=== PATIENT | female | born 1945 | race Caucasian/White ===

== ENCOUNTER 2016-08-09 12:48 | Emergency (ER) | payer MEDICARE, OTHER ==
[2016-08-09 12:56] VITALS: BP 102/60
--- NOTE | 2016-08-09 13:30 | UC ---
Hand/Wrist HPI - HPI Summary HPI Summary: 71 y/o female with PMHX kidney transplant in 1975, osteporosis, adrenal insufficiency presents to the urgent care c/o of left wrist burning pain for the past 3 months after doing some winter shoveling. However it has become worse since last week when she was lifting some bags of mulch. Patient is 6/10 radiating to the thumb. Pt denies tingling or numbness over the hand. Patient denies SOB, chest pain, N/V. - History Of Current Complaint Chief Complaint: UCUpperExtremity Stated Complaint: LEFT WRIST Time Seen by Provider: 08/09/16 12:57 Hx Obtained From: Patient ?: No Onset/Duration: Gradual Onset, Lasting Weeks, Still Present, Worse Since - 1 week ago Severity Initially: Moderate Severity Currently: Moderate Pain Intensity: 8 Pain Scale Used: 0-10 Numeric Character Of Pain: Burning Aggravating Factor(s): Movement, Lifting, Flexion, Extension Associated Signs And Symptoms: Positive: Negative - Allergies/Home Medications Allergies/Adverse Reactions: Allergies Allergy/AdvReac Type Severity Reaction Status Date / Time Adhesive Tape Allergy Hives Verified 08/09/16 12:57 Sulfamethoxazole AdvReac Nausea And Verified 08/09/16 12:57 w/Trimethoprim Vomiting [From Bactrim] Home Medications: Home Medications Ascorbic Acid TAB* [Vitamin C TAB*] 1 tbsp PO DAILY 08/09/16 [History Confirmed 08/09/16] Atorvastatin* [Lipitor 10 MG*] 10 mg PO DAILY 08/09/16 [History Confirmed ] Cholecalciferol [Vitamin D] 10,000 unit PO DAILY 08/09/16 [History Confirmed ] Fludrocortisone Acetate TAB* [Florinef TAB*] 1 tab PO DAILY 08/09/16 [History Confirmed 08/09/16] Probiotic Product [Probiotic Daily] 1 cap PO DAILY 08/09/16 [History Confirmed 08/09/16] azaTHIOprine TAB(*) [Imuran TAB(*)] 50 mg PO DAILY 08/09/16 [History Confirmed 08/09/16] predniSONE TAB* [Deltasone TAB*] 5 mg PO DAILY 08/09/16 [History Confirmed 08/09] PMH/Surg Hx/FS Hx/Imm Hx - Additional Past Medical History Additional PMH: osteporosis, adrenal insuficiency - Surgical History Surgery Procedure, Year, and Place: kidney transplant 1975 - Family History Known Family History: Positive: Cardiac Disease Negative: Renal Disease - Social History Occupation: Retired Alcohol Use: None Substance Use Type: None Smoking Status (MU): Never Smoked Tobacco Review of Systems Constitutional: Negative Skin: Negative Eyes: Negative ENT: Negative Respiratory: Negative Cardiovascular: Negative Gastrointestinal: Negative Genitourinary: Negative Motor: Negative Neurovascular: Negative Musculoskeletal: Other: - left wrist pain Neurological: Negative Psychological: Negative All Other Systems Reviewed And Are Negative: Yes Physical Exam Triage Information Reviewed: Yes Appearance: Well-Appearing, No Pain Distress, Well-Nourished, Thin Vital Signs: Initial Vital Signs Temp 98.2 F 08/09/16 12:49 Pulse 68 08/09/16 12:49 Resp 16 08/09/16 12:49 BP 102/60 08/09/16 12:49 Pulse Ox 98 08/09/16 12:49 Vital Signs Reviewed: Yes Eye Exam: Normal Eyes: Positive: Conjunctiva Clear ENT Exam: Normal ENT: Positive: Normal ENT inspection, Hearing grossly normal, Pharynx normal, TMs normal Dental Exam: Normal Neck exam: Normal Neck: Positive: Supple, Nontender Respiratory Exam: Normal Respiratory: Positive: Chest non-tender, Lungs clear, Normal breath sounds Cardiovascular Exam: Normal Cardiovascular: Positive: RRR, No Murmur, Pulses Normal Abdominal Exam: Normal Abdomen Description: Positive: Nontender, No Organomegaly, Soft. Negative: CVA Tenderness (R), CVA Tenderness (L) Bowel Sounds: Positive: Present Musculoskeletal Exam: Normal, Other - LF wrist tenderness on deep palapation over the ventral side. No swelling or erythema noted. No rashes. mild thenar eminesce atrophy. Positive capillary refill and pulses, sensation. Decrease ROM specially in flexion and extension. Weak abduction over the thumb. Positive phalen test Musculoskeletal: Positive: Strength Intact Neurological Exam: Normal Neurological: Positive: Alert Psychological Exam: Normal Skin Exam: Normal Skin: Negative: rashes Hand/Wrist Course/Dx - Differential Dx/Diagnosis Differential Diagnosis/HQI/PQRI: Carpal Tunnel Syndrome, Dislocation, Fracture, Tenosynovitis Provider Diagnoses: carpal tunnel syndrome, osteoarthritis, osteopenia - Physician Notifications Discussed Patient Care With: Dr Zarrini he advised to Rx tylenol prn to alleviate symptoms, advised PT to continue using the Thumb Spica immobilizer at all times and follow up with orthopedic for further evaluation and treatment. Discharge - Discharge Plan Condition: Stable Disposition: HOME Prescriptions: Acetaminophen TAB* [Tylenol TAB*] 325 mg PO Q6H PRN #30 tab PRN Reason: Pain Patient Education Materials: De Quervain Disease (ED), Paresthesia (ED) Referrals: Aldair Del Toro MD [Medical Doctor] - 1 Week Celeste Mar DO [Primary Care Provider] - Deric Mckeon MD [Medical Doctor] - 1 Week Additional Instructions: Please take medication as directed. Use the thumb Spica immobilizer at all times. Avoid heavy lifting. Follow up with orthopedic for further evaluation.
--- NOTE | 2016-08-09 13:45 | RAD ---
HISTORY: Left wrist pain COMPARISONS: None VIEWS: 3, Frontal, lateral, and oblique views of the left wrist FINDINGS: BONE DENSITY: There is diffuse osteopenia. BONES: There is no displaced fracture. JOINTS: There is moderate osteoarthritis of the radiocarpal and ulnar-carpal articulations. There is chondrocalcinosis. ALIGNMENT: There is no dislocation. SOFT TISSUES: Unremarkable. OTHER FINDINGS: There is dystrophic calcification along the left forearm IMPRESSION: 1. OSTEOPENIA. 2. OSTEOARTHRITIS. 3. CHONDROCALCINOSIS. 4. NO ACUTE OSSEOUS INJURY. IF SYMPTOMS PERSIST, RECOMMEND REPEAT IMAGING.
== END 2016-08-09 14:12 | disposition home or self-care (01) ==
LOC: UCCORT 12:48
DX: G56.02 Carpal tunnel syndrome, left upper limb (principal); M19.032 Primary osteoarthritis, left wrist; M85.88 Other specified disorders of bone density and structure, other site; Z88.2 Allergy status to sulfonamides; Z91.048 Other nonmedicinal substance allergy status; T86.10 Unspecified complication of kidney transplant
CPT/HCPCS: 99202; G0463